=== PATIENT | male | born 1965 | race Caucasian/White ===

== ENCOUNTER 2017-12-22 13:41 | Emergency (ER) | payer MEDICARE ==
--- NOTE | 2017-12-22 15:55 | ER Document Report ---
HPI - HPI Patient complains to provider of: needs medication refills, recently moved here no md Pain Level: 3 Context: 52 yo diabetic male moved from [place], needs refills on lantus, prilosec , zantac, lisinopril (renal dose) albuterol, advair. BP 90's is normal for him. Associated Symptoms: None Exacerbated by: Denies Relieved by: Denies - ROS ROS below otherwise negative: Yes Systems Reviewed and Negative: Yes All other systems reviewed and negative Past Medical History - General Information source: Patient - Social History Smoking Status: Current Every Day Smoker Chew tobacco use (# tins/day): No Frequency of alcohol use: None Drug Abuse: None Lives with: Family Family History: Reviewed & Not Pertinent Patient has suicidal ideation: No Patient has homicidal ideation: No - Past Medical History Cardiac Medical History: Reports: Hx Hypercholesterolemia Endocrine Medical History: Reports: Hx Diabetes Mellitus Type 1 Renal/ Medical History: Denies: Hx Peritoneal Dialysis Musculoskeltal Medical History: Reports Hx Arthritis Past Surgical History: Reports: Hx Cardiac Catheterization, Hx Cardiac Surgery - 3 stents, Hx Vascular Surgery Vertical Provider Document - CONSTITUTIONAL Agree With Documented VS: Yes Exam Limitations: No Limitations General Appearance: No Apparent Distress - INFECTION CONTROL TRAVEL OUTSIDE OF THE [place] IN LAST 30 DAYS: No - HEENT HEENT: Normal ENT Exam - NECK Neck: Supple - RESPIRATORY Respiratory: Breath Sounds Normal, No Respiratory Distress - CARDIOVASCULAR Cardiovascular: Regular Rate, Regular Rhythm - MUSCULOSKELETAL/EXTREMETIES Musculoskeletal/Extremeties: MAEW - NEURO Level of Consciousness: Awake, Alert - DERM Integumentary: Warm Course - Vital Signs Vital signs: Temp Pulse Resp BP Pulse Ox 98.1 F 82 17 99/65 L 98 12/22/17 14:12 12/22/17 14:12 12/22/17 14:12 12/22/17 14:12 12/22/17 14:12 Discharge - Discharge Clinical Impression: medication refills Condition: Good Disposition: HOME, SELF-CARE Instructions: [facility], Diabetes ([facility]), Family Physicians / Practices, Neuropathy ([facility]), Reflux Disease (GERD) ([facility]) Additional Instructions: see family practice doctor next week to er any symptoms or concerns Prescriptions: Albuterol Sulfate [Proair HFA Inhalation Aerosol 8.5 gm MDI] 2 puff IH Q3HP PRN #1 hfa.aer.ad PRN Reason: Hydrocodone Bit/Acetaminophen [Hydrocodon-Acetaminophen 5-325] 1 - 2 each PO Q4HP PRN #10 tablet PRN Reason: Fluticasone/Salmeterol [Advair 250-50 Diskus 14 Dose/Diskus] 1 inh IH Q12H #1 inhaler Insulin Aspart [Novolog Flexpen] 0 unit SUBCUT .SLD SCALE #1 pen Insulin Glargine,Hum.rec.anlog [Lantus Insulin Inj 300 Unit/3 ml Pen] 50 unit SUBCUT ASDIR PRN #10 ml PRN Reason: Lisinopril 5 mg PO DAILY #10 tablet Omeprazole Magnesium [Prilosec Otc] 20 mg PO BID #20 tablet. Ranitidine HCl [Zantac 150 mg Tablet] 150 mg PO BID #20 tablet Referrals: DAIANA ESTEBAN MD [ACTIVE STAFF] - Follow up as needed
[2017-12-22 16:10] VITALS: BP 94/59
== END 2017-12-22 16:10 | disposition home or self-care (01) ==
LOC: ER 13:41
DX: E10.620 Type 1 diabetes mellitus with diabetic dermatitis (principal); E78.00 Pure hypercholesterolemia, unspecified; Z79.4 Long term (current) use of insulin
CPT/HCPCS: 99281

== ENCOUNTER 2018-02-07 19:17 | Emergency (ER) | payer OTHER, MEDICARE ==
[2018-02-07 19:30] VITALS: BP 146/78
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
[2018-02-07] MEDS ORDERED: METHOCARBAMOL 750 MG TABLET PO ONE (21:36)
[2018-02-07] MEDS ORDERED: KETOROLAC TROMETHAMINE INJ/PF 30 MG/1 ML SDV IM ONE (21:36)
[2018-02-07] MEDS ORDERED: HYDROCODONE/ACETAMINOPHEN 5-325 MG TABLET PO ONE (21:36)
[2018-02-07] MEDS ORDERED: LIDOCAINE 5% (700 MG) TRANSDERMAL ADH..PATCH TP ONE (21:37)
== END 2018-02-07 22:48 | disposition home or self-care (01) ==
LOC: ER 19:17
DX: S80.211A Abrasion, right knee, initial encounter (principal); M54.41 Lumbago with sciatica, right side; M54.42 Lumbago with sciatica, left side; V43.62XA Car passenger injured in collision with other type car in traffic accident, initial encounter; M54.2 Cervicalgia; I10 Essential (primary) hypertension; E10.9 Type 1 diabetes mellitus without complications; Z88.0 Allergy status to penicillin; Z95.5 Presence of coronary angioplasty implant and graft
CPT/HCPCS: 99284; 96372; J3490; J1885